=== PATIENT | female | born 2000 | race Caucasian/White ===

== ENCOUNTER 2022-08-23 20:43 | Emergency (ER) | payer OTHER ==
[~2022-08-23] VITALS: Ht 165.1 cm; Wt 99.8 kg
--- NOTE | 2022-08-23 21:18 | NUR ---
BIBSELF FROM HOME C/O SORE TROAT X1 WEEK, SWOLLEN TONSILS, WHITE PATCH IN TONSILS. PT A/OX4. TOLERATING R/A WELL WITH NO RESP DISTRESS. SAFETY MEASURES IN PLACE.
[2022-08-23] MEDS ORDERED: DEXAMETHASONE SOD PHOSPHATE 10 MG/ML VIAL MC STA (21:55)
[2022-08-23] MEDS ORDERED: PENICILLIN G BENZATHINE 2.4 MMU/4 ML ML IM ONE ×2 (22:00→22:03)
[2022-08-23] MEDS ORDERED: DEXAMETHASONE SOD PHOSPHATE 10 MG/ML VIAL ONE (22:03)
--- NOTE | 2022-08-23 22:23 | NUR ---
Patient discharged to home in stable condition. Written and verbal after care instructions given. Patient verbalizes understanding of instruction.
[2022-08-23 22:24] VITALS: BP 128/80
== END 2022-08-23 22:24 | disposition home or self-care (01) ==
LOC: ER 20:43
DX: J02.0 Streptococcal pharyngitis (principal); J45.909 Unspecified asthma, uncomplicated
CPT/HCPCS: 99283; 96372; J0558; L0172; J1100

== ENCOUNTER 2023-04-13 19:46 | Emergency (ER) | payer OTHER ==
[~2023-04-13] VITALS: Ht 165.1 cm; Wt 104.3 kg
[2023-04-13 20:43] VITALS: BP 171/105; TEMP 99.9
[2023-04-13] MEDS ORDERED: PRED50TA PO (21:09)
[2023-04-13 21:20] VITALS: O2SAT 97
== END 2023-04-13 21:20 | disposition home or self-care (01) ==
LOC: ER 19:48
DX: J06.9 Acute upper respiratory infection, unspecified (principal); J45.909 Unspecified asthma, uncomplicated; Z79.899 Other long term (current) drug therapy